=== PATIENT | female | born 1970 | race African-American/Black ===

== ENCOUNTER 2024-02-27 15:20 | Outpatient (CLI) | payer OTHER, SELFPAY ==
--- NOTE | ~2024-02-27 | MM_ITS ---
EXAMINATION: MM screening rosangela BI w belgica HISTORY: Screening mammogram TECHNIQUE: Craniocaudal and mediolateral oblique 3-D tomosynthesis images were obtained and synthetic 2-D images were generated. CAD analysis was submitted and interpreted. COMPARISON: No prior mammogram is available for comparison at this institution. BREAST PARENCHYMAL COMPOSITION:Dense: The breasts are extremely dense, which lowers the sensitivity o f mammography. FINDINGS: There is a 12 mm low-density rounded mass at the inner, posterior right breast. There are s everal low-density ovoid masses in left breast, the upper outer aspect, with additional lesions in th e central/subareolar breast. No suspicious masses or calcifications. IMPRESSION: Bilateral breast masses, as above. Spot compression views and ultrasound are recommended for further evaluation. BI-RADS Category 0: Incomplete: Needs additional imaging evaluation. Reviewed, dictated and finalized at location . E EXAMINER IMPRESSION: Bilateral breast masses, as above. Spot compression views and ultrasound are r ecommended for further evaluation. BI-RADS Category 0: Incomplete: Needs additional imaging evaluation.
== END 2024-02-27 15:21 | disposition home or self-care (01) ==
LOC: MICIMG 15:21
PROVIDERS: PCP Internal Medicine; Visit Provider Nurse Practitioner
DX: Z12.31 Encounter for screening mammogram for malignant neoplasm of breast (principal); N63.10 Unspecified lump in the right breast, unspecified quadrant; N63.21 Unspecified lump in the left breast, upper outer quadrant
CPT/HCPCS: 77063; 77067

== ENCOUNTER 2024-03-23 08:47 | Outpatient (CLI) | payer OTHER, SELFPAY ==
--- NOTE | ~2024-03-23 | MMUS_ITS ---
EXAMINATION: MM diagnostic rosangela BI w belgica, US breast BI limited HISTORY: Bilateral breast masses TECHNIQUE: Additional 3-D tomosynthesis images of the breasts were performed and synthetic 2-D images were generated. CAD analysis was submitted and interpreted. High resolution limited bilateral breast ultrasound was performed. COMPARISON: 02/27/2024 BREAST PARENCHYMAL COMPOSITION:Dense: The breasts are extremely dense, which lowers the sensitivity o f mammography. FINDINGS: MAMMOGRAPHIC FINDINGS: Spot compression views confirm persistent lobulated/circumscribed masses at the upper, outer left tabatha ast. There is also a persistent ovoid mass at the inner, slightly lower left breast, measuring 1 cm i n diameter. Probable persistent circumscribed low-density mass at the posterior, lower, inner right b reast measuring 12 mm. ULTRASOUND: At the 3:00 position right breast, 7 cm from the nipple, there is a 1.1 x 0.6 x 0.9 cm hypoechoic юлия ogeneous circumscribed probable mass. No posterior shadowing. There is a similar-appearing 0.5 cm mas s at the 5:00 position right breast, 4 cm from the nipple. At the left breast 3:00 position, 9 cm from the nipple, there is a 0.6 x 0.3 x 0.7 cm hypoechoic circ umscribed parallel mass. No posterior shadowing. At the 3:00 position left breast, 4 cm from the nipp le, there is a 0.8 x 0.8 x 0.7 cm hypoechoic mass, with mild posterior through transmission, possibly cyst. At the 2:00 position left breast, 9 cm from the nipple, there is a 1.3 x 0.9 x 1.5 cm circumsc ribed, parallel, hypoechoic mass. No posterior shadowing. There is a similar-appearing 0.5 cm mass is also to 2:00 position left breast, 4 cm of the nipple. There is a similar-appearing 0.6 cm mass at t he 2:00 position left breast, 3 cm from the nipple. At the left breast 11:00 position, 7 cm of the ni pple, there is an 0.8 cm similar-appearing mass. There is a 1.0 cm similar-appearing parallel hypoech oic solid circumscribed mass at the 10:00 position left breast, 5 cm from the nipple. IMPRESSION: Numerous benign appearing masses bilaterally, as above. Given multiplicity and bilaterality, this is most compatible with benign findings. BI-RADS Category 2: Benign finding(s). Reviewed, dictated and finalized at location M. ANGE SPECIALIST IMPRESSION: Numerous benign appearing masses bilaterally, as above. Given multiplicity and bilaterality, this is most compatible with benign findings. BI-RADS Category 2: Benign finding(s).
== END 2024-03-23 08:48 | disposition home or self-care (01) ==
PROVIDERS: PCP Nurse Practitioner; Visit Provider Nurse Practitioner
DX: R92.8 Other abnormal and inconclusive findings on diagnostic imaging of breast (principal); N63.12 Unspecified lump in the right breast, upper inner quadrant; N63.14 Unspecified lump in the right breast, lower inner quadrant; N63.21 Unspecified lump in the left breast, upper outer quadrant; N63.22 Unspecified lump in the left breast, upper inner quadrant
CPT/HCPCS: 76642; 77062; 77066; G0279